=== PATIENT | male | born 1975 | race Two or more races ===

== ENCOUNTER 2020-01-19 09:20 | Outpatient (CLI) | payer OTHER, SELFPAY ==
--- NOTE | ~2020-01-19 | XR_ITS ---
XR shoulder RT min 2V DATE: 01/19/2020 09:51 INDICATION: Right shoulder pain TECHNIQUE: 4 views COMPARISON: None FINDINGS: No fracture or dislocation, periosteal reaction or bone destruction or abnormal soft tissue calcification. Normal alignment at the acromioclavicular and glenohumeral joints IMPRESSION: Negative right shoulder Reviewed, dictated and finalized at location B. IMPRESSION: Negative right shoulder
--- NOTE | ~2020-01-19 | XR_ITS ---
EXAMINATION: XR hip RT min 2V DATE: 01/19/2020 09:52 INDICATION: Right hip pain. TECHNIQUE: 2 views of right hip were obtained. COMPARISON: Right hip radiographs 04/22/2019 FINDINGS: Bone alignment is normal. No fracture. There is mild right hip osteoarthritis. IMPRESSION: 1. Mild right hip osteoarthritis. Reviewed, dictated and finalized at location A.
== END 2020-01-19 09:21 | disposition home or self-care (01) ==
LOC: ANHIMG 09:29
PROVIDERS: PCP Emergency Medicine; Visit Provider Emergency Medicine
DX: M16.11 Unilateral primary osteoarthritis, right hip (principal); M25.512 Pain in left shoulder
CPT/HCPCS: 73030; 73502

== ENCOUNTER 2020-04-04 08:30 | Outpatient (CLI) | payer OTHER, SELFPAY ==
--- NOTE | ~2020-04-04 | US_ITS ---
EXAMINATION: US pelvic limited DATE: 04/04/2020 09:29 INDICATION: Incomplete bladder emptying TECHNIQUE: Multiple transabdominal sonographic images of the latter/pelvis were obtained. COMPARISON: None. FINDINGS: Bladder is normal with no wall thickening or mucosal irregularities. The prevoid bladder measures 9.1 x 7.1 x 3.6 cm yielding a calculated prevoid bladder volume of 291 mL. Bilateral ureteral jets are v isualized on color Doppler. Post void calculated bladder volume of 13 mm which is within normal limit s. No free fluid in the pelvis. IMPRESSION: 1. Normal ultrasound of the bladder. Reviewed, dictated and finalized at location A.
== END 2020-04-04 08:31 | disposition home or self-care (01) ==
PROVIDERS: PCP Emergency Medicine; Visit Provider Emergency Medicine
DX: R33.9 Retention of urine, unspecified (principal)
CPT/HCPCS: 76857

== ENCOUNTER 2021-01-21 08:52 | Outpatient (CLI) | payer OTHER, SELFPAY ==
--- NOTE | ~2021-01-21 | XR_ITS ---
XR lumbar spine 2-3V DATE: 01/21/2021 09:11 INDICATION: Low back pain, back spasm. Constipation. TECHNIQUE: AP, lateral, coned lateral lumbosacral views COMPARISON: None FINDINGS: Normal alignment lumbar spine. No fracture or bone destruction or spondylolisthesis. There is mild degenerative spurring of the lumbar spine the lumbar and lumbosacral interspaces are relative ly preserved. The sacroiliac joints appear normal. IMPRESSION: Mild degenerative spurring of lumbar spine Reviewed, dictated and finalized at location A.
--- NOTE | ~2021-01-21 | XR_ITS ---
EXAMINATION: XR abdomen obstructive series DATE: 01/21/2021 09:11 INDICATION: Low back pain, constipation TECHNIQUE: Upright and supine views of the abdomen were obtained. COMPARISON: None. FINDINGS: There is no free intraperitoneal gas. No dilated loops of bowel are evident. There is a mod erate volume of colonic stool. There are minimal airspace opacities of the left lung base. There is m ild left and moderate right hip osteoarthritis. IMPRESSION: 1. Moderate volume of colonic stool. 2. Left basilar airspace opacity, consistent with atelectasis versus pneumonia. Reviewed, dictated and finalized at location B.
== END 2021-01-21 08:53 | disposition home or self-care (01) ==
LOC: ANHIMG 08:57
PROVIDERS: PCP Emergency Medicine; Visit Provider Emergency Medicine
DX: M54.5 Low back pain (principal); K59.00 Constipation, unspecified; R91.8 Other nonspecific abnormal finding of lung field
CPT/HCPCS: 72100; 74019

== ENCOUNTER 2021-01-28 09:07 | Outpatient (CLI) | payer OTHER, SELFPAY ==
--- NOTE | ~2021-01-28 | XR_ITS ---
XR chest 2V DATE: 01/28/2021 09:29 INDICATION: Abnormal chest x-ray. Atelectasis versus pneumonia. Follow-up visit. TECHNIQUE: PA and lateral views COMPARISON: 02/20/2017 PA and lateral chest FINDINGS: Normal heart size. No hilar or mediastinal enlargement. No pulmonary infiltrate or consolid ation, pleural effusion or pulmonary vascular congestion or pneumothorax. IMPRESSION: Negative Reviewed, dictated and finalized at location A. IMPRESSION: Negative
== END 2021-01-28 09:08 | disposition home or self-care (01) ==
PROVIDERS: PCP Emergency Medicine; Visit Provider Emergency Medicine
DX: R91.8 Other nonspecific abnormal finding of lung field (principal)
CPT/HCPCS: 71046

== ENCOUNTER → 2021-07-08 08:28 | Outpatient (CLI) | payer OTHER, SELFPAY ==
[2021-07-09 22:39] LABS: SARS-CoV-2 RNA PCR Positive
== END ==
PROVIDERS: PCP Emergency Medicine; Visit Provider Internal Medicine Endocrinology, Diabetes & Metabolism
DX: U07.1 COVID-19 (principal)
CPT/HCPCS: C9803; U0003; U0005

== ENCOUNTER 2021-09-05 08:54 | Outpatient (CLI) | payer OTHER, SELFPAY ==
--- NOTE | ~2021-09-05 | US_ITS ---
EXAMINATION: US right upper quadrant DATE: 09/05/2021 09:29 INDICATION: Abnormal liver function tests. TECHNIQUE: Multiple grayscale and Doppler ultrasound images of the abdomen were obtained. COMPARISON: CT abdomen and pelvis 07/17/2016 FINDINGS: The visualized portions of the head and body of the pancreas are normal. There is diffuse h epatic steatosis. No liver surface nodularity. There are normal flow in main portal vein. The gallbla dder is normal in size. No gallstones or gallbladder wall thickening. There was no sonographic Brice sign. The common duct is normal and measures 6 mm. IMPRESSION: 1. Diffuse hepatic steatosis. Reviewed, dictated and finalized at location A. K VIEWER
== END 2021-09-05 08:55 | disposition home or self-care (01) ==
LOC: ANHIMG 09:00
PROVIDERS: PCP Emergency Medicine; Visit Provider Emergency Medicine
DX: R74.8 Abnormal levels of other serum enzymes (principal); K76.0 Fatty (change of) liver, not elsewhere classified
CPT/HCPCS: 76705

== ENCOUNTER 2022-10-19 09:16 | Outpatient (CLI) | payer OTHER, SELFPAY ==
--- NOTE | ~2022-10-19 | XR_ITS ---
XR lumbar spine 2-3V DATE: 10/19/2022 09:32 INDICATION: Low back pain, left side. TECHNIQUE: AP, lateral, coned lateral lumbosacral views COMPARISON: 01/21/2021 lumbar spine FINDINGS: There is minimal dextroscoliosis. Normal alignment of the lumbar vertebrae. No fracture or bone destruction or spondylolisthesis. There is mild loss of interspace height at L1-2 and L2-3, minimal spurring at L3-4 and L4-5. L3-4, L4 -5 and L5-S1 interspaces appear well preserved. The sacroiliac joints are intact. IMPRESSION: Minimal dextro scoliosis and mild degenerative change of the lumbar spine Reviewed, dictated and finalized at location L.
== END 2022-10-19 09:17 | disposition home or self-care (01) ==
PROVIDERS: PCP Emergency Medicine; Visit Provider Emergency Medicine
DX: M54.50 Low back pain, unspecified (principal)
CPT/HCPCS: 72100

== ENCOUNTER 2022-10-25 09:13 | Emergency (ER) | payer OTHER, SELFPAY ==
[2022-10-25 09:20] VITALS: BP 145/90; PULSE 81; RESP 15; TEMP 36.8; O2SAT 99
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
[2022-10-25 11:01] VITALS: BP 133/79; PULSE 81; RESP 16; O2SAT 99
== END 2022-10-25 11:03 | disposition home or self-care (01) ==
PROVIDERS: Emergency Provider Nurse Practitioner Family; PCP Emergency Medicine
DX: M54.42 Lumbago with sciatica, left side (principal)
CPT/HCPCS: 96372; 99283; J1100

== ENCOUNTER 2022-10-28 03:33 | Emergency (ER) | payer OTHER, SELFPAY ==
--- NOTE | ~2022-10-28 | CT_ITS ---
EXAMINATION: CT lumbar spine wo con DATE: 10/28/2022 07:43 INDICATION: Low back pain TECHNIQUE: Computed tomography (CT) of the lumbar spine was performed without intravenous contrast. T he dose-length product (DLP) was 597.04 mGy-cm. Iterative reconstruction was used. COMPARISON: None FINDINGS: Bone alignment is normal. There is no fracture. The vertebral body heights are maintained. There is mild loss of intervertebral disc space height at L5-S1. There are mild posterior disc bulges at L4-5 and L5-S1. There is mild to moderate neuroforaminal stenosis on the left at L5-S1. IMPRESSION: 1. Mild lumbar spondylosis, worst at L5-S1, without acute findings. Reviewed, dictated and finalized at location A.
[2022-10-28 03:37] VITALS: BP 154/111; PULSE 68; RESP 20; TEMP 36.1; O2SAT 100
[2022-10-28 06:01] VITALS: BP 131/93; PULSE 67; RESP 15; TEMP 36.4; O2SAT 100
--- NOTE | 2022-10-28 06:05 | PC.NURSE ---
Patient states that currently he has no pain in his back, but when he does it shoots down his left leg. Patient stated he does currently have left leg pain from left thigh to mid-calf.
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
[2022-10-28] MEDS: HYDROcodone/acetaminophen (*CRX) 5-325 MG TABLET 1 TAB PO (09:42)
[2022-10-28] MEDS: CYCLOBENZAPRINE HCL 10 MG TABLET PO (09:42)
[2022-10-28 09:54] VITALS: BP 123/90; PULSE 61; RESP 12; O2SAT 98
== END 2022-10-28 09:55 | disposition home or self-care (01) ==
PROVIDERS: Emergency Provider Emergency Medicine; PCP Emergency Medicine
DX: M54.42 Lumbago with sciatica, left side (principal); S39.012A Strain of muscle, fascia and tendon of lower back, initial encounter; M47.816 Spondylosis without myelopathy or radiculopathy, lumbar region; X58.XXXA Exposure to other specified factors, initial encounter
CPT/HCPCS: 72131; 99284; A9270

== ENCOUNTER 2023-07-27 11:59 | Emergency (ER) | payer OTHER, SELFPAY ==
--- NOTE | ~2023-07-27 | CT_ITS ---
EXAMINATION: CT abdomen pelvis w con DATE: 07/27/2023 12:56 INDICATION: Left lower quadrant abdominal pain TECHNIQUE: Computed tomography (CT) of the abdomen and pelvis was performed with 100 mL Omnipaque-350 intravenous contrast. Automated exposure control and iterative reconstruction technique were employe d. The dose-length product was 445.35 mGy-cm. COMPARISON: 07/17/2016 FINDINGS: Mild dependent atelectasis in bilateral lower lobes. Heart size is normal. No pericardial or pleural effusion. Chronic focal hepatic steatosis at the ligamentum teres. Gallbladder, spleen, pancreas and right adrenal gland are normal. Unchanged 1.2 cm left adrenal nodule which given the 7 years of stabi lity would be most consistent with an adenoma. There are a few <5 mm low-attenuation bilateral likely renal cysts which are too small to definitively characterize. There is inflammatory stranding surrou nding a 2.0 x 1.5 cm ovoid macroscopic fat attenuation mass with central vessel position along the an terior margin of the sigmoid colon consistent with epiploic appendagitis. Bowels including the append ix are otherwise normal. Bladder is normal. Minimal amount of likely reactive free fluid in the deep pelvis. No abscess or free intraperitoneal gas. No pathologically enlarged abdominal or pelvic lympha denopathy. IMPRESSION: 1. Epiploic appendagitis at the proximal sigmoid colon. Reviewed, dictated and finalized at location A. RGROUND MINER
[2023-07-27 12:02] VITALS: BP 124/93; PULSE 68; RESP 16; TEMP 36.4; O2SAT 98
--- NOTE | 2023-07-27 12:11 | ED.ABDPAIN ---
HPI - Abdominal Pain General Chief Complaint: Abdominal Pain Stated Complaint: abd pain Time Seen by Provider: 07/27/23 12:11 Left lower quadrant pain 3 days ago, no radiation, intermittent, denying aggravating or relieving factors, he denies any fever, chills, nausea, vomiting, diarrhea, constipation or urinary symptoms. No history of abdominal surgery, does not take medicine at home, drinks alcohol every now and then, does not smoke or use drugs Source: patient Related Data Allergies Allergy/AdvReac Type Severity Reaction Status Date / Time No Known Allergies Allergy Verified 07/27/23 13:19 Review of Systems Review of Systems: All systems reviewed & are unremarkable except as noted in HPI and below Exam Narrative: General appearance: Well-developed, well-nourished Skin: Normal color Head: Normocephalic, nontraumatic Eyes: Clear conjunctiva ENT: Oropharynx normal, ears normal, nose normal Neck: Supple, nontender Chest and respiratory: Airway patent, no respiratory distress, no accessory muscle use Heart: Regular rate/rhythm Abdomen: Soft, left lower quadrant tenderness, no organomegaly, quiet bowel sounds Vascular: Normal peripheral pulses, normal capillary refill. Musculoskeletal: Normal range of motion, nontender back Neurologic: Alert and oriented ?3, EPIC ANESTHESIA ANALYST is normal as tested, no gross motor deficit Course Vital Signs Vital signs: Vital Signs Temperature 36.4 C 07/27/23 12:02 Pulse Rate 68 07/27/23 12:02 Respiratory Rate 16 07/27/23 12:02 Blood Pressure 124/93 H 07/27/23 12:02 Pulse Oximetry 98 07/27/23 12:02 Temperature 36.4 C 07/27/23 12:02 Pulse Rate 68 07/27/23 12:02 Respiratory Rate 16 07/27/23 12:02 Blood Pressure 124/93 H 07/27/23 12:02 Pulse Oximetry 98 07/27/23 12:02 MDM - Abdominal Pain MDM Narrative Medical decision making narrative: Patient presents with the lower abdominal pain mainly left lower quadrant, vital signs on arrival stable, physical examination showed mild diffuse tenderness lower abdomen main the left lower quadrant, differential diagnosis include diverticulitis, colitis, urinary tract infection, kidney stone, constipation. Blood workup showed no acute abnormalities, CT scan of the abdomen and pelvis showed epiploic appendagitis at the proximal sigmoid colon Discharged on ibuprofen 600 every 6 hours, To follow-up with surgery as needed. Differential Diagnosis Differential diagnosis: Likely other (As above) Medical Records Attestation: I reviewed the patient's medical records. Lab Data Attestation: I reviewed the patient's lab results. 07/27/23 12:18 07/27/23 12:18 Labs: Lab Results 07/27/23 07/27/23 Range/Units 12:18 12:24 WBC 6.8 (4.5-10.0) K/mm3 RBC 6.34 H (4.6-6.20) M/mm3 Hgb 13.0 L (14.0-18.0) g/dL Hct 43.3 (42.0-52.0) % MCV 68.3 L (80-100) fl MCH 20.5 L (26-34) pg MCHC 30.0 L (32-36) g/dl RDW 17.6 H (11.5-14.5) % Plt Count 189 (150-375) k/mm3 MPV 11.4 H (7.4-10.4) fl Immature Gran % (Auto) 0.3 (0-0.5) % Neut % (Auto) 53.7 (45.5-73.1) % Lymph % (Auto) 33.1 (18.3-44.2) % Schleicher % (Auto) 11.5 H (2.6-8.5) % Eos % (Auto) 1.0 (0-4.4) % Baso % (Auto) 0.4 (0.2-1.2) % Lymph # (Auto) 2.25 (0.9-3.2) K/mm3 Schleicher # (Auto) 0.8 H (0.1-0.6) K/mm3 Eos # (Auto) 0.1 (0-0.3) K/mm3 Baso # (Auto) 0.0 (0.0-0.1) K/mm3 Abs Immat Gran (auto) 0.02 (0.00-0.031) K/mm3 Absolute Neuts (auto) 3.7 (1.3-6.7) K/mm3 Absolute Nucleated RBC 0.0 (0.0-0.012) K/mm3 Nucleated RBC % 0.0 (0.0-0.2) % Platelet Estimate Slightly decreased (Adequate) Large P
[2023-07-27] MEDS: ONDANSETRON INJ 4 MG/2 ML VIAL IV PUSH (12:33)
[2023-07-27] MEDS: SODIUM CHLORIDE 0.9% IV 1,000 ML 999 ML IV CONT (12:33)
--- NOTE | 2023-07-27 12:35 | PC.NURSE ---
Pt refusing pain medication at this time. States I feel like I can handle the pain at this time . Dr. Daniels notified.
[2023-07-27 12:37] LABS: Appearance Urine Clear (Clear); Bilirubin Urine Negative (Negative); Blood Urine Negative (Negative); Color Urine Yellow (Yellow); Glucose Urine UA Negative (Negative); Ketones Urine Negative (Negative); Leukocyte Esterase Ur Negative LEU/UL (Negative); Nitrate Urine Negative (Negative); Protein Urine Negative (Negative); Specific Grav Ur 1.005 (1.001-1.035); Urobilinogen Urine 0.2 mg/dL (<2.0); pH Urine 7.5 (5.0-9.0)
[2023-07-27 12:39] LABS: Basophils Percent Auto 0.4 % (0.2-1.2); Eosinophils Absolute Auto 0.1 K/mm3 (0-0.3); Hematocrit 43.3 % (42.0-52.0); Immature Granulocyte Absolute 0.02 K/mm3 (0.00-0.031); Immature Granulocyte Percent A 0.3 % (0-0.5); Immature Platelet Fraction Pct 7.3 % (0.9-11.2); Lymphocytes Absolute Auto 2.25 K/mm3 (0.9-3.2); Lymphocytes Percent Auto 33.1 % (18.3-44.2); Mean Corpuscular Hemoglobin 20.5 pg (26-34); Mean Corpuscular Volume 68.3 fl (80-100); Mean Platelet Volume 11.4 fl (7.4-10.4); Monocytes Absolute Auto 0.8 K/mm3 (0.1-0.6); Monocytes Percent Auto 11.5 % (2.6-8.5); Neutrophils Absolute Auto 3.7 K/mm3 (1.3-6.7); Neutrophils Percent Auto 53.7 % (45.5-73.1); Platelet Count Result 189 k/mm3 (150-375); Red Blood Count 6.34 M/mm3 (4.6-6.20); Red Cell Distribution Width 17.6 % (11.5-14.5); White Blood Count 6.8 K/mm3 (4.5-10.0)
[2023-07-27 12:43] LABS: Alanine Aminotransferase 30 U/L (6-50); Albumin Level 4.3 g/dL (3.5-5.1); Alkaline Phosphatase 52 U/L (38-126); Anion Gap 9 mmol/L (8-16); Aspartate Amino Transferase 26 U/L (17-59); Bilirubin,Total 0.6 mg/dL (0.2-1.3); Blood Urea Nitrogen 12 mg/dL (9-20); Calcium 9.2 mg/dL (8.4-10.2); Carbon Dioxide 25 mmol/L (22-30); Chloride 104 mmol/L (98-107); Estimated CRCL calculation 87 ml/min; Estimated Glomerular Filt Rate > 60; Glucose 105 mg/dL (65-110); Lipase 110 U/L (23-300); Potassium 4.2 mmol/L (3.4-5.0); Sodium 138 mmol/L (137-145)
[2023-07-27 12:46] LABS: Add Urine Microscopic? NO
[2023-07-27 13:00] LABS: Hypochromasia 1+ (NORMAL)
[2023-07-27 13:01] LABS: Large Platelets Present; Schistocytes None Seen (NORMAL); Target Cells 2+ (NORMAL)
== END 2023-07-27 14:29 | disposition home or self-care (01) ==
PROVIDERS: Emergency Medicine; Emergency Provider Emergency Medicine; PCP Emergency Medicine
DX: K63.89 Other specified diseases of intestine (principal)
CPT/HCPCS: 36415; 74177; 80053; 81003; 83690; 85025; 85055; 96361; 96374; 99284; J2405; J7030; Q9967

== ENCOUNTER 2023-09-27 09:43 | Outpatient (CLI) | payer OTHER, SELFPAY ==
--- NOTE | ~2023-09-27 | CT_ITS ---
EXAMINATION: CT abdomen pelvis w con INDICATION: Left lower quadrant abdominal pain TECHNIQUE: Computed tomographic images of the abdomen and pelvis were obtained after the administrati on of 100 cc of Omnipaque 350 intravenous contrast. The dose-length product (DLP) was 327.50 mGy-cm. Automated exposure control and iterative reconstruction technique were employed. COMPARISON: 07/27/2023 FINDINGS: Minimal dependent atelectasis is present in the lung bases. The heart size is normal. The l iver, spleen, pancreas, gallbladder, and right adrenal gland are normal. There is a stable 1.2 cm nod ule of the left adrenal gland, likely an adenoma. Hypoattenuating lesions in the kidneys, measuring u p to 5 mm on the right, are too small to characterize but likely represent cysts. No pathologically e nlarged abdominal or pelvic lymph nodes are identified. No free intraperitoneal gas or evidence of ernestine wel obstruction. There has been interval resolution of the previously described epiploic appendagitis of the sigmoid colon. There is mild circumferential wall thickening of the urinary bladder. There is a fat-containing right inguinal hernia. IMPRESSION: 1. Diffuse wall thickening of the urinary bladder which could be due to cystitis or incomplete disten tion. Reviewed, dictated and finalized at location F. IMPRESSION: 1. Diffuse wall thickening of the urinary bladder which could be due to cystiti s or incomplete distention.
== END 2023-09-27 09:44 | disposition home or self-care (01) ==
PROVIDERS: PCP Emergency Medicine; Visit Provider Surgery
DX: R10.32 Left lower quadrant pain (principal)
CPT/HCPCS: 74177; Q9967

== ENCOUNTER 2024-03-20 11:35 | Outpatient (CLI) | payer OTHER, SELFPAY ==
[2024-03-20 12:02] LABS: Basophils Percent Auto 0.6 % (0.2-1.2); Eosinophils Absolute Auto 0.4 K/mm3 (0-0.3); Eosinophils Percent Auto 5.3 % (0-4.4); Hematocrit 40.9 % (42.0-52.0); Hemoglobin 12.8 g/dL (14.0-18.0); Immature Granulocyte Absolute 0.02 K/mm3 (0.00-0.031); Immature Granulocyte Percent A 0.3 % (0-0.5); Lymphocytes Absolute Auto 2.49 K/mm3 (0.9-3.2); Lymphocytes Percent Auto 34.5 % (18.3-44.2); Mean Corpuscular HGB Conc 31.3 g/dl (32-36); Mean Corpuscular Hemoglobin 20.8 pg (26-34); Mean Corpuscular Volume 66.4 fl (80-100); Mean Platelet Volume 10.6 fl (7.4-10.4); Monocytes Absolute Auto 0.9 K/mm3 (0.1-0.6); Monocytes Percent Auto 12.9 % (2.6-8.5); Neutrophils Absolute Auto 3.4 K/mm3 (1.3-6.7); Neutrophils Percent Auto 46.4 % (45.5-73.1); Platelet Count Result 223 k/mm3 (150-375); Red Blood Count 6.16 M/mm3 (4.6-6.20); Red Cell Distribution Width 16.2 % (11.5-14.5); White Blood Count 7.2 K/mm3 (4.5-10.0)
[2024-03-20 12:14] LABS: Platelet Estimate Adequate (Adequate); Schistocytes None Seen
[2024-03-20 12:15] LABS: Hypochromasia 1+
[2024-03-20 12:16] LABS: Poikilocytosis 1+; Target Cells 1+
[2024-03-20 13:34] LABS: Anion Gap 9 mmol/L (4-12); Blood Urea Nitrogen 14 mg/dL (9-20); Calcium 9.1 mg/dL (8.4-10.2); Carbon Dioxide 26 mmol/L (22-30); Chloride 98 mmol/L (98-107); Estimated Glomerular Filt Rate > 60; Glucose 90 mg/dL (65-110); Potassium 4.2 mmol/L (3.4-5.0); Sodium 133 mmol/L (137-145)
[2024-03-23 07:14] LABS: Hematocrit 45.6 % (38.5-50.0); Hemoglobin 12.9 g/dL (13.2-17.1); MCH 20.6 pg (27.0-33.0); MCV 72.8 fL (80.0-100.0); RDW 17.1 % (11.0-15.0); Red Blood Cell Count 6.26 Million/uL (4.20-5.80)
[2024-04-01 10:36] LABS: Reference Lab Test Name Alpha Glob Mut
== END 2024-03-20 11:36 | disposition home or self-care (01) ==
LOC: ANHLAB 11:37
PROVIDERS: PCP Emergency Medicine; Visit Provider Internal Medicine Hematology & Oncology
DX: D50.9 Iron deficiency anemia, unspecified (principal)
CPT/HCPCS: 36415; 80048; 81257; 83021; 85025

== ENCOUNTER 2024-03-21 09:09 | Outpatient (CLI) | payer OTHER, SELFPAY ==
[2024-03-21 11:20] LABS: Iron 89 ug/dL (49-181)
[2024-03-21 11:42] LABS: Percent Iron Saturation 27 % (20-50)
== END 2024-03-21 09:10 | disposition home or self-care (01) ==
LOC: ANHLAB 09:11
PROVIDERS: PCP Emergency Medicine; Visit Provider Internal Medicine Hematology & Oncology
DX: D50.9 Iron deficiency anemia, unspecified (principal)
CPT/HCPCS: 36415; 82728; 83540; 83550

== ENCOUNTER 2024-06-18 11:25 | Outpatient (CLI) | payer OTHER, SELFPAY ==
[2024-06-18 12:22] LABS: Influenza A QL RT-PCR Positive (Negative); Influenza B QL RT-PCR Negative (Negative); RSV RNA, RT-PCR Negative (Negative); SARS-CoV-2 RNA PCR Negative (Negative)
== END 2024-06-18 11:26 | disposition home or self-care (01) ==
LOC: ANHLAB 11:28
PROVIDERS: PCP Emergency Medicine; Visit Provider Emergency Medicine
DX: J06.9 Acute upper respiratory infection, unspecified (principal); Z20.822 Contact with and (suspected) exposure to COVID-19
CPT/HCPCS: 87637

== ENCOUNTER 2024-09-26 14:32 | Emergency (ER) | payer OTHER, SELFPAY ==
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
[2024-09-26 14:27] VITALS: BP 152/92; PULSE 64; RESP 18; TEMP 36.4; O2SAT 100
--- OUTSIDE RECORDS SUMMARY | 2024-09-26 18:25 | XMS_ITS | Clinical Summary ---
Author Organization [facility] [employer] Address [address] [place] [address] Care Team Providers Care Supervisor Scenic Arts Name Role Phone Giuliano Goss MD Primary Care Provider [phone] Source Comments [facility] [employer],non-owned Affiliates and Associated Physician Practices is amultiple site organization consisting of ambulatory clinics and hospital sitesin [place], [place], [place] and [place]. This disclosure is being madepursuant to the Care Everywhere program and may not contain all information available regarding this patient. Last updated 18.[facility] [employer] Allergies No known active allergies Medications * Be aware that medications may not be up to date on this document. Alwaysverify current medications with the patient. Medication Sig Dispensed Refills Start Date End Date Status [place]-3 Fatty Acids (FISH OIL PO) Active docusate sodium (COLACE) 100 MG capsule Take 100 mg by mouth once daily as needed 01/26/2021 Active MIRALAX 17 g packet 01/20/2021 Activ e clobetasol (TEMOVATE) 0.05 % ointmentIndications: Hypertrophic scar Apply to affected area on chest twice daily. 30 days supply. 60 g 1 02/07/2021 Active Additional Information Patient not taking.Reported on 01/16/2023 vitamin D, ergocalciferol, (Drisdol) 1.25 MG (23179 UT) capsule 03/30/2021 Active chlorhexidine (Peridex) 0.12 % solution RINSE WITH 15ML AFTER BREAKFAST AND AFTER DINNER TWICE A DAY 09/08/2023 Active cyclobenzaprine (Flexeril) 10 MG tablet Take 1 (one) tablet by mouth 2 times daily as needed 10/28/2022 Active Active Problems Problem Noted Date Diagnosed Date Hypertrophic scar 02/07/2021 Multiple benign melanocytic nevi of upper extremity, lower extremity, and trunk 02/07/2021 Abnormal blood finding 07/20/2017 Family History Medical History Relation Name Comments None Known Brother None Known Father None Known Maternal Aunt None Known Maternal Grandfather None Known Maternal Grandmother None Known Maternal Uncle None Known Mother None Known Other None Known Paternal Aunt None Known Paternal Grandfather None Known Paternal Grandmother None Known Paternal Uncle None Known Sister Asthma Neg Hx CVA Neg Hx Cancer - Breast Neg Hx Cancer - Other Neg Hx Cancer - Skin, Melanoma Neg Hx Cancer - Skin, Non Melanoma Neg Hx Eczema Neg Hx Hemophilia Neg Hx Psoriasis Neg Hx Relation Name Status Comments Brother Father Maternal Aunt Maternal Grandfather Maternal Grandmother Maternal Uncle Mother Other Paternal Aunt Paternal Grandfather Paternal Grandmother Paternal Uncle Sister Social History Tobacco Use Types Packs/Day Years Used Date Smoking Tobacco: Every Day Cigarettes Smokeless Tobacco: Never Tobacco Cessation:Ready to Q uit: No; Counseling Given: No Comments:2 cigarettes a day Sex and Gender Information Value Date Recorded Sex Assigned at Not on file Gender Identity Not on file Sexual Orientation Not on file Last Filed Vital Signs Vital Sign Reading Time Taken Comments Blood Pressure 134/83 10/01/2023 10:12 AM CDT Pulse 68 10/01/2023 10:12 AM CDT Temperature 36.7 C (98 F) 10/01/2023 10:12 AM CDT Respiratory Rate 16 10/01/2023 10:12 AM CDT Oxygen Saturation 100% 09/17/2023 10:35 AM CDT Inhaled Oxygen Concentration - - Weight 81.6 kg (180 lb) 10/01/2023 10:12 AM CDT Height 167.6 cm (5' 6 ) 10/01/2023 10:12 AM CDT Body Mass Index 29.05 10/01/2023 10:12 AM CDT Plan of Treatment Health Maintenance Due Date Last Done Comments COLOGUARD (AGES 45-75) - COL ON CA SCREENING 1976 COLON MONITORING 1976 COLONOSCOPY - COLON CA SCREENING 1976 CT COLONOGRAPHY - COLON CA SCREENING 1976 Colorectal Cancer Screening 1976 FIT - COLON CA SCREENING 1976 FLEX SIG - COLON CA SCREENING 1976 LIPID TESTING 1976 HIV SCREENING 1991 HEPATITIS C SCREENING 07/27/1994 DTAP/TDAP/TD VACCINES (1 - Tdap) 1995 HEPATITIS B VACCINE (1 of 3 - 19+ 3-dose series) 1995 PNEUMOCOCCAL VACCINE (1 of 2 - PCV) 1995 SCREENING FOR DIABETES 01/16/2023 8, 07/24/2017 COVID-19 VACCINE (1 - 2023-2 5 season) 2024 INFLUENZA VACCINE (#1) 2024 DEPRESSION SCREENING 07/02/2024 ZOSTER VACCINE (1 of 2) 2026 HIB VACCINE Aged Out No longer eligi ble based on patient's age to complete this topic HPV VACCINE Aged Out No longer eligi ble based on patient's age to complete this topic MENINGOCOCCAL (Group B) VACCINE SHARED DECISION-MAKING Aged Out No longer eligible based on patient's age to complete this topic MENINGOCOCCAL GROUPS A/C/Y/W VACCINE Aged Out No longer eligible b ased on patient's age to complete this topic Procedures Procedure Name Priority Date/Time Associated Diagnosis Comments COMPREHENSIVE METABOLIC PANEL STAT 08/21/2017 10:59 AM HELP DESK AGENT from Last 3 Months or Most Recently Relevant to Health Maintenance Results * COMPREHENSIVE METABOLIC PANEL (08/21/2017 10:59 AM HELP DESK AGENT) BUN 11 7 - 26 mg/dL [facility] Creatinine 1.0 0.6 - 1.2 mg/dL [facility] Sodium 140 136 - 145 mmol/L [facility] Potassium 4.4 3.5 - 4.5 mmol/L [facility] Chloride 106 98 - 107 mmol/L [facility] CO2 25 22 - 29 mmol/L [facility] Glucose 99 70 - 115 mg/dL [facility] Calcium 9.5 8.4 - 10.2 mg/dL [facility] Protein Total 7.5 6.0 - 8.3 g/dL [facility] Albumin 3.9 3.4 - 5.0 g/dL [facility] Bilirubin Total 0.5 0.2 - 1.2 mg/dL [facility] Alkaline Phosphatase 62 40 - 150 Units/L [facility] ALT 52 0 - 55 Units/L [facility] AST 25 5 - 34 Units/L [facility] Anion Gap 13 8 - 18 [facility] BUN/Creatinine Ratio 11 7 - 23 [facility] Osmolality Calculated 289 270 - 300 mOsm/kg [facility] Albumin/Globulin Ratio 1.1 1.1 - 2.3 [facility] eGFR >60 >60 mL/min/1.7 3 m2 [facility] Blood specimen (specimen) BLOOD SPECIMEN / Unknown 08/21/2017 10:59 AM HELP DESK AGENT 08/21/2017 11:14 AM HELP DESK AGENT Dc Bonilla MD LAB - CHEMISTRY EYAD ARGUELLES [facility] Organization Address City/State/ZIP Co de Phone Number [facility] [address] [phone] from Last 3 Months or Most Recently Relevant to Health Maintenance Care Teams Supervisor Scenic Arts Relationship Specialty Start Date End Date Giuliano Goss MD [address] [place] [address] PCP - General 12/14/17
--- OUTSIDE RECORDS SUMMARY | 2024-09-26 18:25 | XMS_ITS | Encounter Summary ---
Author Organization [facility] Address [address] [place] [address] Care Team Providers Care Nursery School Attendant Name Role Phone Giuliano Goss MD Primary Care Provider [phone] Encounter Details Date Type Department Care Team (Latest Contact Info) Description 09/04/[address] [facility] [address] [place] [address] Dc Bonilla MD [address] [place] [address] Myelodysplastic syndrome Social History Tobacco Use Types Packs/Day Years Used Date Smoking Tobacco: Never Assessed Sex and Gender Information Value Date Recorded Sex Assigned at Not on file Gender Identity Not on file Sexual Orientation Not on file documented as of this encounter Plan of Treatment Not on file documented as of this encounter Procedures Procedure Name Priority Date/Time Associated Diagnosis Comments CYTOGENETICS CANCER PANEL Routine 09/04/2017 9:35 AM BALANCE BRIDGE ASSEMBLER documented in this encounter Results * CYTOGENETICS CANCER PANEL (09/04/2017 9:35 AM BALANCE BRIDGE ASSEMBLER) Indication for Study MDS (Pretreatment) 8 2:32 PM CDT [facility] Results Cytogenetics Analysis and count of 20 cells (8 cells karyotyped, GTL-banding) from 24-hour unstimulated and 72-hour Interleukin stimulated bone marrow cultures showed the following chromosome pattern: 46,XY[20] Fluorescence In-Situ Hybridization (FISH): Analysis of 200 interphase cells hybridized with specific labeled fluorescent probes*: break apart EVI1 probes* directed onto 3q26.2, dual labeled probes* [id number] directed onto 5p15.2/5q31, dual labeled probes* CEP7/U5G190 directed onto 7 cent/7q31, dual labeled [id number]/[id number] directed onto 8cent/20q11.2 and dual break apart probes* FOXO1 directed onto 13q14 showed the following results: nuc saran(EVI1x2)[200],(D5 S23,A6N197,EGR1)x2[2 00],(D7Z1,V2W105)x2[ 200],(CEP8,R80V678)x 2[200],(PGYG3w9)[200 ] Normal 8 2:32 PM T [facility] Interpretation Male chromosome analysis showing 46,XY with no evidence for any clonal structural or numerical abnormality in all cells examined at 400 average band resolution. FISH was negative for all the probes of MDS panel. 8 2:32 PM [facility] Disclaimer *This test was developed, and its performance characteristics determined by [facility] as required by CLIA '88 Regulations. It has not been cleared or approved for specific uses by the U.S. Food and Drug Administration. The FDA has determined that such clearance or approval is not necessary. This test is used for clinical purposes. It should not be reported as investigational or for research. --------- Notes for FISH probes: 1- At the pretreatment level, the cutoff values for trisomy is 1%, dual breakapart is 3 to 5%, double fusion is 1%, and monosomy/deletion is 5% for no FFPE specimen and 20% for FFPE specimen. Efficiency of the probe intensity was acceptable overall. 2- At the post-treatment level, any identified percentage found below the pretreatment cutoff values could not be interpreted unequivocally and needs to be correlated with clinicopathological and clinical findings. At the post treatment level, a low percentage could either represent an actual minimal residual disease or an actual nature of normal cell division. 3- Cutoff values are combined for all different probes forming a range of percentages which covers low/high ends of each probe that fluctuate due to environmental conditions. Percentages that are close to the cutoff values have to be interpreted in correlation with clinicopathological and clinical findings. 4- An additional validation is performed by correlating pathology with cytogenetic findings. 8 2:32 PM CDT [facility] Client Information [facility] - [id number] [facility] Lab # [id number] CHRFISH, [id number] CHROBM 8 2:32 PM CDT [facility] Embedded Images 8 2:32 PM CDT [facility] Other BONE MARROW SPECIMEN / Unknown 09/04/2017 9:35 AM BALANCE BRIDGE ASSEMBLER 09/04/2017 10:39 AM BALANCE BRIDGE ASSEMBLER Dc Bonilla MD LAB - PATHOLOGY/CYTO LOGY ORDERABLES Performing Organization Address City/State/[facility] Co de Phone Number [facility] [address] [place] [address] documented in this encounter Visit Diagnoses Diagnosis Myelodysplastic syndrome (HCC) Myelodysplastic syndrome, unspecified documented in this encounter Care Teams Nursery School Attendant Relationship Specialty Start Date End Date Giuliano Goss MD [address] [address] PCP - General 12/14/17 documented as of this encounter
--- OUTSIDE RECORDS SUMMARY | 2024-09-26 18:25 | XMS_ITS | Clinical Summary ---
Author Organization [facility] Address [address] [place] [address] Phone Care Team Providers Care Heel Sprayer Name Role Phone Jj Jimenez MD Primary Care Provider [phone] Allergies No known active allergies Medications Medication Sig Dispensed Refills Start Date End Date Status pravastatin (PRAVACHOL) 40 MG tablet 1 tablet daily 0 08/09/2016 Active losartan (COZAAR) 100 MG tablet 1 tablet daily 0 08/09/2016 Active glimepiride (AMARYL) 4 MG tablet 1 tablet daily 0 08/09/2016 Active metoprolol tartrate (LOPRESSOR) 100 MG tablet Take 100 mg by mouth 2 (two) times a day. Active SITagliptin (JANUVIA) 100 MG tablet Take 100 mg by mouth 1 (one) time each day. Active hydroCHLOROthiazide (HYDRODIURIL) 12.5 MG tablet Take 12.5 mg by mouth 1 (one) time each day. Active Active Problems Problem Noted Date Diagnosed Date Type 2 diabetes mellitus with diabetic nephropat hy 09/04/2018 Microalbuminuria 08/09/2016 Essential (primary) hypertension 08/09/2016 Family History Medical History Relation Comments Diabetes mellitus Mother Hypertensive disorder Mother Kidney disease Neg Hx Relation Status Comments Mother Social History Tobacco Use Types Packs/Day Years Used Date Smoking Tobacco: Unknown Smokeless Tobacco: Never Alcohol Use Standard Drinks/Week Comments No 0 (1 standard drink = 0.6 oz pur e alcohol) AUDIT-C Answer Date Recorded Frequency of Alcohol Consumption Never 11/05/2018 Average Number of Drinks Not on file 019 Frequency of Binge Drinking Not on file 12/2018 Sex and Gender Information Value Date Recorded Sex Assigned at Not on file Gender Identity Not on file Sexual Orientation Not on file Last Filed Vital Signs Vital Sign Reading Time Taken Comments Blood Pressure 143/100 11/12/2018 10:51 AM CDT Pulse 74 11/12/2018 10:51 AM CDT Temperature - - Respiratory Rate - - Oxygen Saturation - - Inhaled Oxygen Concentration - - Weight 63.5 kg (140 lb) 02/16/2021 4:53 PM CDT Height 152.4 cm (5') 02/16/2021 9:00 AM CDT Body Mass Index 27.34 02/16/2021 9:00 AM CDT Plan of Treatment Health Maintenance Due Date Last Done Comments Influenza Vaccine (#1) 2024 Care Teams Heel Sprayer Relationship Specialty Start Date End Date Jj Jimenez MD [address] [place] [id number] PCP - General 11/12/18
--- OUTSIDE RECORDS SUMMARY | 2024-09-26 18:25 | XMS_ITS | CONTINUITY OF CARE DOCUMENT ---
Author Name gaudencio ratliff Address Unknown Organization [facility] Address [address] [place] [address] Phone [phone] Care Team Providers Care Folding Machine Setter Name Role Phone Lonnie HODGES, Jony Unavailable JANET HODGES, POORNIMA Unavailable [phone] POORNIMA GONZALES MD Unavailable [phone] PROBLEMS Condition Status Date Provider Notes Palpitations active Jony Fleming MD Family History of Hypertension: active ? Robert Fleming MD Diabetes mellitus Aic 8.1 active Jony victoria MD HTN essential nl echo and stress test active 0 Jony Fleming MD ENCOUNTERS Date Type Provider Location Encounter Diag nosis - In-person encounter Office Visit Jony Fleming MD [place] [facility] Diabetes mellitus Aic 8.1HTN essential nl echo and stress test - In-person encounter Office Visit Jony Fleming MD [place] [facility] PalpitationsFamily History of Hypertension:Diabetes mellitus Aic 8.1HTN essential nl echo and stress test VITAL SIGNS Date Observation Value Provider Body Mass Index (Ratio) 26.26 kg/m2 Robert Fleming MD blood pressure, cuff size regular Isaías Yarbrough blood pressure, diastolic 84 mm[Hg] Isaías Yarbrough blood pressure, systolic 150 mm[Hg] May Yarbrough oxygen saturation, oximetry 98 % Jenn Yarbrough respiratory rate E&M 16 /min Jenn blum pulse rate 79 /min Jenn Pat lder weight E&M 153 [lb_av] Jenn Pat luisaer height E&M 64 [in_i] Jenn Pat lder blood pressure, diastolic 100 mm[Hg] Ke diaz Johnsonamy blood pressure, systolic 130 mm[Hg] May Johnsonamy Body Mass Index (Ratio) 26.43 kg/m2 Robert Fleming MD blood pressure, cuff size regular Ke diaz Ortakay blood pressure, diastolic 94 mm[Hg] Ke rri Elizabethamy blood pressure, systolic 169 mm[Hg] May Johnsonamy oxygen saturation, oximetry 97 % Jenn Shankargiancarlosandipamy respiratory rate E&M 16 /min Jenn blum pulse rate 69 /min Jenn Pat er weight E&M 154 [lb_av] Jenn Pat luisaer height E&M 64 [in_i] Jenn Pat sathish ALLERGIES No Known Drug Allergies HISTORY OF MEDICATION USE Medication Status Instructions Dates Provider Indications Com ments AMLODIPINE BESYLATE 10 MG ORAL TABLET active po daily 01/30 Jony Fleming MD HYDROCHLOROTHIAZIDE 25 MG ORAL TABLET active ONE TAB DAILY 01/08 Jony Fleming MD ATORVASTATIN CALCIUM 40 MG ORAL TABLET active TK 1 T PO QD 12/08 Jenn Yarbrough #30, 30 days supply, Prescribed by POORNIMA GONZALES, Filled 12/12/2016 METOPROLOL SUCCINATE ER 50 MG ORAL TABLET EXTENDED RELEASE 24 HOUR active one tab. daily 12/18 Jony Fleming MD #30, 30 days supply, Filled 12/18/2016 GLIMEPIRIDE 2 MG ORAL TABLET active TK 1 T PO QD BEFORE DINNER 10/19 Jenn Yarbrough #30, 30 days supply, Prescribed by POORNIMA GONZALES, Filled 12/19/2016 METFORMIN HCL 1000 MG ORAL TABLET active TK 1 T PO BID WITH THE MORNING AND LIZBET MEAL 10/05 Jenn Yarbrough #60, 30 days supply, Prescribed by POORNIMA GONZALES, Filled 12/25/2016 LOSARTAN POTASSIUM 100 MG ORAL TABLET active take one pill a day 07/15 Jenn Yarbrough #30, 30 days supply, Prescribed by POORNIMA GONZALES, Filled 12/25/2016 SOCIAL HISTORY Date Observation Value Provider social history reviewed E&M revi ewed - no changes required Jony Fleming MD alcohol use no Jenn Pat lder smoking status Never smoker Jenn Shankarshoaib ordoñez smoking status Never smoker Jenn Shankarshoaib odroñez social history reviewed E&M revi ewed - no changes required Jony Fleming MD alcohol use no Jenn Pat lder smoking status Never smoker Jenn Radha ordoñez FUNCTIONAL STATUS Date Observation Value Provider periodic limb movement index absent (0) Anastacio Castle MD FAMILY HISTORY Family Member Condition Father Negative FH of Coron alejandro Artery Disease Mother Family History of Hy pertension: Mother Family History of Di abetes: INSURANCE PROVIDERS Payer name Policy type / Coverage type [place] [employer] ID [employer] Medicaid [id number] ADVANCE DIRECTIVES Name Date DISCUSSED - NO DECISION MADE TREATMENT PLAN Date Name Performer Cardiology Follow up Jony young MD Cardiology Follow up Jony young MD Cardiology Follow up Joyn young MD Cardiology New Patient Jony terry MD Cardiology New Patient Jony terry MD Cardiology New Patient Jony terry MD HISTORY OF PROCEDURES Procedure Date Procedure Name Provider Procedure Notes S tatus SNOMED-CT: 79299292 Physical Exam, Performed: Pulse Exam of Foot Jony Fleming MD completed SNOMED-CT: [id number] Current Medications Documented Jony Fleming MD completed Stress EKG Anastacio song MD completed EKG Jony Fleming MD completed SNOMED-CT: [id number] Current Medications Documented Jony Fleming MD completed
--- OUTSIDE RECORDS SUMMARY | 2024-09-26 18:25 | XMS_ITS | Clinical Summary ---
Author Organization [facility] Address [address] [place] [address] Care Team Providers Care Psychiatrist Name Role Phone Giuliano Goss MD Primary Care Provider [phone] Allergies No known active allergies Medications omega-3 fatty acids-fish oil 300-1,000 mg Capsule Take by mouth daily. Active Active Problems No known active problems Encounters Date Type Department Care Team Description 09/09/2024 External Device Data [facility]CTION Provider, Abstract 09/09/2024 External Device Data [facility] Provider, Abstract 09/06/2024 External Device Data [facility] Provider, Abstract 09/05/2024 External Device Data [facility] Provider, Abstract 08/26/2024 External Device Data [facility] Provider, Abstract 07/23/2024 External Device Data [facility] Provider, Abstract 07/23/2024 External Device Data [facility] Provider, Abstract 07/16/2024 External Device Data [facility] ABSTRACTION Provider, Abstract from Last 3 Months Family History Medical History Relation Name Comments Healthy Brother No Known Problems Child 1 No Known Problems Child 2 No Known Problems Child 3 Heart Disease Father Healthy Mother Relation Name Status Comments Brother Alive Child 1 Alive Child 2 Alive Child 3 Alive Father Alive Mother Alive Social History Tobacco Use Types Packs/Day Years Used Date Smoking Tobacco: Every Day Cigarettes 0.1 30.6 Started: 03/02/1994 Smokeless Tobacco: Never Tobacco Cessation:Ready to Q uit: Not Asked; Counseling Given: Not Answered Comments:smokes 3 cig a day Alcohol Use Standard Drinks/Week Comments Yes 0 (1 standard drink = 0.6 oz pur e alcohol) occasional Sex and Gender Information Value Date Recorded Sex Assigned at Not on file Legal Sex Male 10:15 AM CDT Gender Identity Not on file Sexual Orientation Not on file Last Filed Vital Signs Vital Sign Reading Time Taken Comments Blood Pressure 147/89 04/04/2024 10:04 AM CDT Pulse 61 04/04/2024 10:04 AM CDT Temperature 36.6 C (97.8 F) 04/04/2024 10:01 AM CDT Respiratory Rate 16 04/04/2024 10:01 AM CDT Oxygen Saturation 98% 04/04/2024 10:01 AM CDT Inhaled Oxygen Concentration - - Weight 74.8 kg (165 lb) 04/04/2024 10:01 AM CDT Height 165.1 cm (5' 5 ) 03/13/2024 10:14 AM CDT Body Mass Index 27.46 03/13/2024 10:14 AM CDT Plan of Treatment Health Maintenance Due Date Last Done Comments Pre-Diabetes and Diabetes Screening 1976 PNEUMOCOCCAL VACCINE 0-49 YEARS (1 of 2 - PCV) 983 DTAP/TDAP/TD VACCINES (1 - Tdap) 1995 HEPATITIS B VACCINES (1 of 3 - 19+ 3-dose series) 07/04 COLORECTAL SCREENING 2021 Colorectal Cancer Screening 2021 FIT-DNA Q 3 years 2021 FIT/FOBT Q 1 year 2021 Flex Sig/CT Colonography Q 5 years 2021 INFLUENZA VACCINE (#1) 2024 Insurance [facility] MEDICAID [facility] MEDICAID Care Teams Psychiatrist Relationship Specialty Start Date End Date Giuliano Goss MD PCP - General Emergency Medicine 10/23/18
--- OUTSIDE RECORDS SUMMARY | 2024-09-26 18:25 | XMS_ITS | Continuity of Care Document ---
Author Organization [facility] Address [address] [place] [address] Phone Care Team Providers Care Rice Farmworker Name Role Phone Gabriel PT,MPT,ATC, Skip Unavailable Unavai lable Procedures Procedure Date Therapeutic Activities Neuromuscular Re-Ed Therapeutic Exercise Manual Therapy Hot or Cold Pack Therapeutic Activities Neuromuscular Re-Ed Therapeutic Exercise Manual Therapy Hot or Cold Pack PT Evaluation Moderate Complexity Therapeutic Activities Advance Directives Directive Yes / No Effective Date File Name No Information Encounters Encounter Description Practice Location Reason(s) For Visit Diagnoses Date Provider Providers Copied on Encounter [facility], [address], [place], [place], [id number], tel:[phone] Ashley No Information [address] [place], [place], [place]. Referring Provider: Carine Smith [address], [place], [address]. tel:[phone] [facility], [address], [place], [place], [address], tel:[phone] Ashley No Information [facility] Referring Provider: Carine Smith [address] [facility] [address], [place], [address]. tel:[phone] [facility] [place], [address], [place], [place], [address], [place] tel:[phone] Js No Information Gabriel Peters [place], [place]. Referring Provider: Carine Smith, [address], [place], [address]. tel:[phone] Family History Family Member Type Diagnosis Age At Onset No Information Payers Payer name Insurance type Covered democrat ID Authoriza carey(s) Ronaldon-LOP LI 00 Social History Type Description Quantity Date Captured Comments Sex Male Smoking Status No Information Chief Complaint And Reason For Visit No Information Reason For Referral Reason For Referral No Information Plan Of Treatment Date Type Action Status Appointment Uriel Fleming BOOKED Appointment Uriel Fleming BOOKED Appointment Uriel Fleming BOOKED Appointment Uriel Fleming BOOKED Appointment Uriel Fleming BOOKED History Of Present Illness Encounter Date Complaint History Of Prese nt Illness No Information Functional Status Date Functional Assessmen t No Information Instructions Date Instruction Additional Infor mation No Information Assessments Type Assessment Date No Information Patient Care Teams Name Effective Dates (start - stop) Status Members No Information
--- OUTSIDE RECORDS SUMMARY | 2024-09-26 18:25 | XMS_ITS | Continuity of Care Document ---
Author Organization [facility] Address [address] [place] [address] Phone Care Team Providers Care Appeals Nurse Name Role Phone Jj Jimenez MD Unavailable Unavailable Allergies, Adverse Reactions, Alerts Substance Reaction Status Criticality No Known Allergies Active No Inform ation Medications Medication Instructions Dosage Effective Dates (start - stop) Status Comments No Drug Therapy Prescribed Procedures Procedure Date OFFICE/OUTPATIENT VISIT, EST PREV VISIT, EST, AGE 18-39 OFFICE/OUTPATIENT VISIT, EST OFFICE/OUTPATIENT VISIT, EST OFFICE/OUTPATIENT VISIT, EST OFFICE/OUTPATIENT VISIT, EST PREV VISIT, EST, AGE 18-39 OFFICE/OUTPATIENT VISIT, EST OFFICE/OUTPATIENT VISIT, EST PREV VISIT, EST, AGE 18-39 Advance Directives Directive Yes / No Effective Date File Name No Information Encounters Encounter Description Practice Location Reason(s) For Visit Diagnoses Date Provider Providers Copied on Encounter OFFICE/OUTPA TIENT VISIT, EST [facility], [address] [place] [place], [address], [place] tel:[phone] [facility] fatigue (chief complaint) A1c (chief complaint) low MCV (chief complaint) FatigueSleep disorderOther thalassemiasMetabol ic syndrome 201 6 Tony Gardner. [address] [place], [address] , [place]. tel:[phone] Referring Provider: Jj Jimenez, [address], [place], [place], [address]. tel:[phone] PREV VISIT, EST, AGE 18-39 [facility], [address], [place], [place], [address], [place] tel:[phone] [facility] Medicine PHysical (chief complaint) Encounter for general adult medical exam w abnormal findingsPolyuriaPai n in unspecified jointNevus, non-neoplastic Apr-1 8-201 6 Tony Gardner. [address], [place], [place], [address] , [place]. tel:[phone] Referring Provider: Prieto Gonzalez [address], [place], [place], [address]. tel:[phone] OFFICE/OUTPA TIENT VISIT, [facility], [address], [place], [place], [address], [place] [phone] [facility] fever (chief complaint) Dietary surveillance and counselingFeverVira l Infection, Unspecified Apr-0 3-201 5 Tony Gardner. [address], [place], [place], [address] , [place]. tel:[phone] Referring Provider: Prieto Gonzalez [address], [place], [place], [address]. tel:[phone] OFFICE/OUTPA TIENT VISIT, [facility], [address], [place], [place], [address], [place] tel:[phone] [facility] sick (chief complaint) HTN (chief complaint) thalassemi a (chief complaint) Dietary surveillance and counselingViral Infection, UnspecifiedHyperten pricila, UnspecifiedOTHER THALASSEMIA Dec- 6-201 4 Tony Gardner. [address], [place], [place], [address] , [place]. tel:[phone] Referring Provider: Prieto Gonzalez [address], [place], [address]. tel:[phone] OFFICE/OUTPA TIENT VISIT, [facility], [address], [place], [place], [address], [place] tel:[phone] [facility] MCV (chief complaint) vitamin d (chief complaint) Dietary surveillance and counselingAnemiaOth er abnormality of red blood cellsUnspecified vitamin d deficiency Apr- 4 Tony Gardner. [address], [place], [place], [address] , [place]. tel:[phone] Referring Provider: Prieto Gonzalez [address], [place], [place], [address]. tel:[phone] PREV VISIT, EST, AGE 18-39 [facility], [address], [place], [place], [address], [place] tel:[phone] [facility] Physical (chief complaint) Routine Medical ExamDietary surveillance and counselingRoutine Medical Exam Mar- 4 Tony Luo [address], [place], [place], [address] , [place]. [phone] Referring Provider: Prieto Gonzalez [address], [place], [place], [address]. tel:[phone] OFFICE/OUTPA TIENT VISIT, EST [facility], [address], [place], [place], [address], [place] tel:[phone] [facility] headache (chief complaint) LFT (chief complaint) Anemia (chief complaint) Dietary surveillance and counselingHeadacheU nspecified chronic liver disease without mention of alcoholAnemia Sep- 4 Tony Gardner. [address], [place], [place], [address] , [place]. tel:[phone] Referring Provider: Prieto Gonzalez [address], [place], [place], [address]. tel:[phone] OFFICE/OUTPA TIENT VISIT, EST [facility], [address], [place], [place], [address], [place] tel:[phone] [facility] liver (chief complaint) Anemia (chief complaint) vitami n d (chief complaint) Dietary surveillance and counselingUnspecifi ed chronic liver disease without mention of alcoholAnemiaUnspec ified vitamin d deficiency 3 Tony Gardner. [address], [place], [place], [address] , [place]. tel:[phone] Referring Provider: Jj Jimenez, [address], [place], [place], [address]. tel:[phone] PREV VISIT, EST, AGE 18-39 [facility], [address], [place], [place], [address], [place] tel:[phone] [facility] Physical (chief complaint) Dietary surveillance and counselingRoutine Medical ExamRoutine Medical Exam 3 Tony Gardner. [address] [facility] [address], [place], [place], [address] , [place]. tel:[phone] Referring Provider: Jj Jimenez [facility] [facility] [address], [place], [place], [address]. tel:[phone] Family History Family Member Type Diagnosis Age At Onset Brother Problem (finding) Alive and well Father Problem (finding) Hypertension Mother Problem (finding) Alive and well Payers Payer name Insurance type Covered democrat ID Authoriza tion(s) No Information Social History Type Description Quantity Date Captured Comments Alcohol Use Details Caffeine Use Details Unknown Tobacco Use Status Light cigarette smok er (1-9 cigs/day) Smoking Status Light tobacco smoker Sex Male Vital Signs Date / Time: Height Weight BMI Pulse Rate Blood Pressure Temperature Respiratory Rate Body Surface Area Head Circumference BMI percentile Pulse Ox Inhaled Ox 9:16 AM 170.18 cm 178.00 lbs 27.8 8 kg/m eter (2) 70 /min 122/82 mm[Hg] 96.2 F 16 /min Chief Complaint And Reason For Visit From encounter dated '11/02/2015 08:30'. fatigue (chief complaint). Description: Additional information: Pt feels chronic fatigue and he states that he snores at night and wakes up feeling tired. A1c (chief complaint). Description: Pt has mildly elevated A1c but no high glucose. Pt denies any polyuria, polydipsia now low MCV (chief complaint). 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 Pt denies any blood loss. Plan Of Treatment Date Type Action Status Goal Tobacco cessation counseling completed Goal Tobacco cessation counseling completed Goal Tobacco cessation counseling completed Goal Tobacco cessation counseling completed Goal Tobacco cessation counseling completed Goal Tobacco cessation counseling completed Referral Ordered: Pulmonology (related to Sleep disorder) ordered Referral Ordered: Referrals: Pulmonology. Evaluate and treat ordered Referral Ordered: Referral: Hematology. ordered Referral Ordered: MRI BRAIN W/O DYE ordered Referral Ordered: US EXAM, ABDOM, COMPLETE ordered History Of Present Illness Encounter Date Complaint History Of Prese nt Illness fatigue Additional infor mation: Pt feels chronic fatigue and he states that he snores at night and wakes up feeling tired. A1c Pt has mildly el evated A1c but no high glucose. Pt denies any polyuria, polydipsia now low MCV Pt has chronic l ow mcv due to thalmassia. Pt denies any blood loss. PHysical Pt needs annual physical. Pt c/o polyuria during last 2 monthts. Pt denies any thirsty or weight gain or loss. Pt also c/o joint pain around knee and elbow and back. Pt denies any injury. Pt denies any sciatica or any numnbess. Pt denies any vision problem. Pt denies any fever or any other complaints Medications Administered Medication Instructions Dosage Effective Dates (start - stop) Status Comments No Drug Therapy Prescribed Instructions Date Instruction Additional Infor mation Prescribed Diet Educ ation/Lifestyle Education Regarding Diet Related to Dietary Surveillance and Counseling Prescribed Activity and Exercise Education Related to Dietary Surveillance and Counseling Decrease caloric intake Related to Dietary surveillance counseling Physical activity counseling Rel ated to Dietary surveillance counseling Physical activity counseling Rel ated to Dietary surveillance counseling Decrease caloric intake Related to Dietary surveillance counseling Dietary counseling Related to Di etary surveillance counseling Decrease caloric intake Related to Dietary surveillance counseling Decrease caloric intake Related to Dietary surveillance counseling Dietary counseling Related to Di etary surveillance counseling Decrease caloric intake Related to Dietary surveillance counseling Dietary counseling Related to Di etary surveillance counseling Dietary counseling Related to Di etary surveillance counseling Decrease caloric intake Related to Dietary surveillance counseling Dietary counseling Related to Di etary surveillance counseling Decrease caloric intake Related to Dietary surveillance counseling Assessments Type Assessment Date assessment Fatigue assessment Sleep disorder assessment Other thalassemias assessment Metabolic syndrome Mental Status Date Cognitive Assessment Orientation - Germfask ed to time, place, person, situation.
--- OUTSIDE RECORDS SUMMARY | 2024-09-26 18:25 | XMS_ITS | Clinical Summary ---
Author Organization [facility] Address [address] [place] [address] Care Team Providers Care Licensed Pharmacist Name Role Phone Giuliano Goss MD Primary Care Provider [phone] Allergies No known active allergies Medications lidocaine (LIDODERM) 5 % Place 1 patch on the skin daily Remove & discard patch within 12 hours or as directed by . 15 patch 10/29/2022 Active ibuprofen (ADVIL,MOTRIN) 800 mg tablet Take 1 tablet (800 mg total) by mouth every 8 (eight) hours as needed for pain 30 tablet 10/29/2022 Active cyclobenzaprine (FLEXERIL) 10 mg tablet Take 1 tablet (10 mg total) by mouth 2 (two) times a day as needed 10/28/2022 Active omega-3 fatty acids-fish oil 300-1,000 mg capsule Take by mouth daily Active gabapentin (NEURONTIN) 100 mg capsule Take 1 capsule (100 mg total) by mouth 3 (three) times a day 90 capsule 11/02/2022 Active Active Problems No known active problems Medical History Medical History Date Comments Bulge of lumbar disc without myelopathy 10/29/19 23 Neural foraminal stenosis of lumbar spine 2022 Lumbar disc herniation with left radiculopathy 0 11/08/2022 Lumbar facet arthropathy 11/08/2022 Family History Medical History Relation Name Comments No Known Problems Father No Known Problems Mother Relation Name Status Comments Father Mother Social History Tobacco Use Types Packs/Day Years Used Date Smoking Tobacco: Every Day Cigarettes 0.1 25 Tobacco Cessation:Ready to Q uit: Not Asked; Counseling Given: Not Answered AUDIT-C Answer Date Recorded Q1: How often do you have a drink containing alc ohol? 2-4 times a month 11/02/2022 Q2: How many drinks containi ng alcohol do you have on a typical day when you are drinking? 1 or 2 11/02/2022 Q3: How often do you have si x or more drinks on one occasion? Never 11/02/2022 Personal Safety Answer Date Recorded Have you ever been in or are you currently in a harmful physical or emotional relationship or is someone making you feel afraid or unsafe? 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 Not on file Not on file Obstetrics History Last Filed Vital Signs Vital Sign Reading Time Taken Comments Blood Pressure 139/79 10/29/2022 3:09 PM CDT Pulse 61 10/29/2022 3:09 PM CDT Temperature 36.5 C (97.7 F) 10/29/2022 11:48 AM CDT Respiratory Rate 16 10/29/2022 11:48 AM CDT Oxygen Saturation 100% 10/29/2022 3:09 PM CDT Inhaled Oxygen Concentration - - Weight 81.6 kg (180 lb) 11/17/2022 11:06 AM CDT Height 157.5 cm (5' 2 ) 11/17/2022 11:06 AM CDT Body Mass Index 32.92 11/17/2022 11:06 AM CDT Plan of Treatment Health Maintenance Due Date Last Done Comments Colon Cancer Screening-Colonoscopy 1976 Depression Screening 1976 Hepatitis C Screening 1976 DTaP/Tdap/Td Vaccine (1 - Tdap) 1987 Hepatitis B Screening 1994 Regular Well Visit/Exam 18-64 1994 Pneumococcal vaccine <65 (1 of 2 - PCV) 1995 Covid-19 Vaccine (4 - season) 2024 09/30/2022, 06/06/2021, 09/09/2020 Influenza Vaccine (#1) 2024 06/30/2014 Insurance [facility] Care Teams Licensed Pharmacist Relationship Specialty Start Date End Date Giuliano Goss MD PCP - General Emergency Medicine 11/02/22
--- OUTSIDE RECORDS SUMMARY | 2024-09-26 18:25 | XMS_ITS | Referral Summary ---
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
[2024-09-26 19:39] VITALS: BP 154/104; PULSE 64; RESP 16; TEMP 36.6; O2SAT 100
[2024-09-26] MEDS: methocarbamoL 750 MG TABLET PO (20:16)
[2024-09-26] MEDS: KETOROLAC 10 MG TABLET PO (20:17)
== END 2024-09-26 20:50 | disposition home or self-care (01) ==
PROVIDERS: Emergency Provider Student in an Organized Health Care Education/Training Program; PCP Emergency Medicine
DX: S13.4XXA Sprain of ligaments of cervical spine, initial encounter (principal); S39.012A Strain of muscle, fascia and tendon of lower back, initial encounter; V43.52XA Car driver injured in collision with other type car in traffic accident, initial encounter
CPT/HCPCS: 70450; 72125; 72131; 73030; 99284; A9270